=== PATIENT | female | born 1965 | race Caucasian/White ===

== ENCOUNTER 2021-12-03 13:47 | Emergency (ER) | payer OTHER ==
[~2021-12-03] VITALS: Ht 170.2 cm; Wt 86.2 kg
--- NOTE | 2021-12-03 14:34 | NUR ---
TO ER BED 10, C/O BLOOD PRESSURE NOTED HIGH TODAY SYSTOLIC IN THE 200'S, LUE PAIN, AND HEADACHE, AAOX3, BREATHING EVEN AND NON LABORED, CONNECTED TO MONITOR, EKG ONGOING, AWAITING MD WIGGINS
--- NOTE | 2021-12-03 14:46 | NUR ---
JUDITH TUCKER AT PT'S BEDSIDE
[2021-12-03] MEDS ORDERED: CLONIDINE HCL 0.1 MG TABLET ONE (14:51)
--- NOTE | 2021-12-03 14:53 | NUR ---
RFA #18G S/L; PATENT AND INTACT. BLOOD COLLECTED AND SENT TO LAB
[2021-12-03] MEDS ORDERED: CLONIDINE HCL 0.1 MG TABLET PO ONE (15:00)
[2021-12-03 15:28] LABS: BASOPHILS % (AUTO) 0.5 % (0.0-2.0); HEMATOCRIT 40 % (33-45); LYMPHOCYTES # (AUTO) 1.3 K/uL (0.8-4.8); LYMPHOCYTES % (AUTO) 22.8 % (20.0-44.0); MEAN CORPUSCULAR HGB CONC 33 g/dl (31.0-36.0); MEAN CORPUSCULAR VOLUME 79 fL (82-100); MONOCYTES # (AUTO) 0.3 K/uL (0.1-1.30); MONOCYTES % (AUTO) 5.7 % (2.0-12.0); PLATELET COUNT (AUTO) 144 K/uL (150-450); RED BLOOD CELL COUNT(AUTO) 5.01 MIL/uL (4.0-5.2); WHITE BLOOD COUNT (AUTO) 5.8 K/uL (4.3-11.0)
[2021-12-03 15:39] LABS: CARBON DIOXIDE 28 mmol/L (21-32); CHLORIDE 102 mmol/L (98-107); GLUCOSE 91 mg/dL (74-106); POTASSIUM 3.6 mmol/L (3.5-5.1); SODIUM SERUM 139 mmol/L (136-145); UREA NITROGEN, BLOOD 14 mg/dL (7-18)
[2021-12-03] MEDS ORDERED: AMLO10TA4 PO (16:05)
--- NOTE | 2021-12-03 16:18 | NUR ---
IV removed. Catheter intact and site benign. Pressure and 4x4 applied to site. No bleeding noted.Patient discharged to home in stable condition. Written and verbal after care instructions given. Patient verbalizes understanding of instruction.
[2021-12-03 16:23] VITALS: BP 185/123
== END 2021-12-03 16:23 | disposition home or self-care (01) ==
LOC: ER 13:54
DX: I16.0 Hypertensive urgency (principal)
CPT/HCPCS: 36415; 71045-TC; 80048-TC; 84484-TC; 85025-TC

== ENCOUNTER 2025-03-27 02:38 | Emergency (ER) | payer MEDICARE, OTHER ==
[~2025-03-27 02:38] MED LIST: AMLO10TA4 PO
== END 2025-03-27 04:44 | disposition left against medical advice (07) ==
LOC: ER 02:50
DX: R06.02 Shortness of breath (principal); I10 Essential (primary) hypertension; Z53.21 Procedure and treatment not carried out due to patient leaving prior to being seen by health care provider